=== PATIENT | male | born 1945 | race African-American/Black ===

== ENCOUNTER → 2016-10-22 | Day surgery (SDC) | payer OTHER ==
[~2016-10-22] VITALS: Ht 185.4 cm; Wt 84.4 kg
[~2016-10-22] MED LIST: NAPROSYN375 MG PO; NAPROSYN500 M1 PO
--- NOTE | 2016-10-22 13:37 | Operative Report ---
Operative/Inv Procedure Report Surgery Date: 10/22/16 Name of Procedure: Right knee arthroscopy, partial lateral meniscectomy Pre-Operative Diagnosis: Right knee lateral meniscus tear Post-Operative Diagnosis: Right knee lateral meniscus tear Estimated Blood Loss: scant Surgeon/Seafood Team Member: HANANE BORREGO MD Anesthesia: laryngeal mask airway Complications: None Condition: Stable to PACU Operative Indication: This is a 71-year-old male with right knee pain. MRI showed a meniscus tear. He has failed conservative care. Risks and benefits of the procedure were discussed with the patient at length. Risks include but are not limited to nerve damage, muscle damage, infection, blood loss, blood clots, pulmonary embolus, and even . The patient agreed to the above risks and elected to proceed with surgery. Operative/Procedure Note Note: The patient was placed supine on the operating room table. A tourniquet was applied. The lower extremity prepped and draped in normal sterile fashion. A timeout was performed before the incision. The site marking was visualized before incision. After the leg was prepped and draped, an Esmarch was used to exsanguinate the extremity. The tourniquet was inflated. A standard inferolateral portal was established with an 11 blade. The camera was inserted. A medial portal was established with a spinal needle and an 11 blade. The diagnostic arthroscopy was then performed which showed the above findings. The shaver was used to debride the anterior horn of the lateral meniscus. A straight biter was also used to debride the body of the lateral meniscus. There was a communication with a para-meniscal cyst which was opened up with the straight biter. The shaver was used to further debride the lateral meniscus and take it back to a stable rim of cartilage. The knee was copiously irrigated. The portal sites were closed with 3-0 nylon suture in a simple interrupted fashion. The knee was injected with 10 mL of 0.25% Marcaine with epinephrine. A dry sterile dressing was applied and the patient was transferred to PACU in stable condition. Findings: Posterior horn medial meniscus with degenerative changes however no tearing noted. Medial compartment articular cartilage with grade 1 chondral changes. ACL intact. PCL intact. Lateral compartment articular cartilage with grade 1 chondral changes. Complex tear of the anterior horn and body of the lateral meniscus with associated parameniscal cyst. Undersurface of the patella with grade 3 and 4 chondral changes. Trochlea articular cartilage with grade 1 chondral changes.
== END ==
LOC: STS 00:59
DX: M23.241 Derangement of anterior horn of lateral meniscus due to old tear or injury, right knee (principal); M17.11 Unilateral primary osteoarthritis, right knee; I10 Essential (primary) hypertension; I73.9 Peripheral vascular disease, unspecified; M54.12 Radiculopathy, cervical region
CPT/HCPCS: J0131